=== PATIENT | female | born 1930 | race Caucasian/White ===

== ENCOUNTER 2019-02-06 09:40 | Inpatient (IN) | payer OTHER, MEDICAID ==
[2019-02-06] VITALS (21 sets, daily range): BP systolic 84–123; BP diastolic 32–72
[~2019-02-06] VITALS: Ht 162.6 cm; Wt 95.4 kg
[2019-02-06] MEDS ORDERED: SODIUM CHLORIDE 0.9% 1,000 ML IV ONE ×2 (10:38→14:30)
[2019-02-06 11:05] LABS: Basophils # (auto) 0 uL; Basophils % (auto) 0.2 % (0.0-2.0); Eosinophils # (auto) 0 uL; Hematocrit 39.2 % (36.0-46.0); Hemoglobin 12.4 g/dL (12.2-16.2); Lymphocytes # (auto) 0.5 uL; Mean Corpuscular Hemoglobin 25.2 pg (28.0-32.0); Mean Corpuscular Hgb Conc. 31.6 g/dL (32.0-36.0); Mean Corpuscular Volume 79.8 fL (80.0-100.0); Monocytes # (auto) 1.3 uL; Monocytes % (auto) 5.1 % (0.0-12.0); Neutrophils # (auto) 23.1 uL; Neutrophils % (auto) 92.7 % (37.0-80.0); Nucleated Red Blood Cells % 0.1 %; Platelet Count (auto) 337 10^3/uL (140-450); Red Blood Cells 4.92 10^6/uL (4.0-5.20); Red Cell Distribution Width 19.1 % (11.8-14.3); White Blood Cell 24.9 10^3/uL (4.4-10.8)
[2019-02-06 11:24] LABS: Albumin 3.1 g/dL (3.4-5.0); Calcium 8.7 mg/dL (8.5-10.1); Potassium 4.3 mmol/L (3.5-5.1)
[2019-02-06 11:25] LABS: INR 2.75 (0.9-1.15); Partial Thromboplastin Time 32.4 sec (23.64-32.05)
[2019-02-06 11:29] LABS: BUN/Creatinine Ratio 29.9; Bilirubin, Total 0.7 mg/dL (0.2-1.0); Total Protein 7.8 g/dL (6.4-8.2)
[2019-02-06] MEDS ORDERED: PIPERACILLIN-TAZO 4.5GM 100 ML IV ONE (12:30)
[2019-02-06 14:11] LABS: Lactic Acid w/Reflex 2.2 mmol/L (0.4-2.0)
[2019-02-06 14:19] LABS: Urine Bacteria MANY /hpf (None Seen); Urine Blood 2+ /uL (Negative); Urine Hyaline Cast FEW /lpf (0 - 2); Urine Mucus FEW (None Seen); Urine Specific Gravity 1.019 (1.001-1.035); Urine WBC 47 /hpf (0 - 5)
[2019-02-06 14:28] LABS: Alcohol, Urine < 3.0 mg/dL (0-5); Amphetamine Screen, Urine NEGATIVE (NEGATIVE); Barbiturate Scree,Urine NEGATIVE (NEGATIVE); Benzodiazephine Screen, Urine NEGATIVE (NEGATIVE); Cannabinoid Screen, Urine NEGATIVE (NEGATIVE); Cocaine Screen, Urine NEGATIVE (NEGATIVE); Opiate Scree,Urine POSITIVE (NEGATIVE); Phencyclidine Screen, Urine NEGATIVE (NEGATIVE)
[2019-02-06] MEDS ORDERED: AZITHROMYCIN 500MG/ 250ML 250 ML IV ONE (14:30)
[2019-02-06] MEDS ORDERED: ALBUTEROL SULF 2.5 MG/0.5ML(0.5%) NEB SOLN NEB PRN (14:30)
[2019-02-06] MEDS ORDERED: LACTULOSE 20Gm/30ML SOLN PO PRN (14:30)
[2019-02-06] MEDS ORDERED: LABETALOL HCL 5 MG/ML ML 20ML VIAL IV PRN (14:30)
[2019-02-06] MEDS ORDERED: DEXTROSE (50%) 50ML SYRG IV PRN (14:30)
[2019-02-06] MEDS ORDERED: VANCOMYCIN PER PHARMACY 0 MG IV SCH (14:30)
[2019-02-06] MEDS ORDERED: traMADol HCL 50 MG TAB PO PRN (14:30)
[2019-02-06] MEDS ORDERED: VANCOMYCIN 1GM/250ML 250 ML IV ONE (14:30)
[2019-02-06] MEDS ORDERED: DILTIAZEM 125mg/125ml BAG KIT 125 ML IV SCH (14:30)
[2019-02-06] MEDS ORDERED: DILTIAZEM HCL 25 MG/5 ML VIAL IV ONE (14:30)
[2019-02-06] MEDS ORDERED: ONDANSETRON HCL 4 MG/2 ML VIAL IV PRN (14:30)
[2019-02-06] MEDS ORDERED: NITROGLYCERIN 0.4 MG SL TAB SL PRN (14:30)
[2019-02-06] MEDS ORDERED: MORPHINE SULF INJ 2 MG/ML SYRINGE 1ML IV PRN (14:30)
[2019-02-06 15:23] LABS: CRP High Sensitivity 2.28 mg/dL (< 0.3)
--- NOTE | 2019-02-06 16:50 | NUR ---
REPORT RECEIVED FROM BRIEN THOMAS FROM ER PATIENT TO GO TO ROOM 263.
[2019-02-06] MEDS ORDERED: WARFARIN SODIUM 2 MG TAB PO ONE (17:00)
[2019-02-06] MEDS: InsuLIN REG 1unit/0.01ml Soln (100units/ml) SC SCH ×2 (17:00→22:41)
[2019-02-06] MEDS: ACCU-CHEK COMFORT CURVE STRIP VI SCH ×2 (17:00→22:41)
--- NOTE | 2019-02-06 17:00 | NUR ---
Admit to [facility] admitted to [facility] via gurney on monitoring analyst, and portable 02. Patient transferred to bed, connected to unit monitoring and oxygen, and weighed by bed scale. Patient oriented to Julee Sutton, primary RN, unit, room, bed, and unit policies regarding patient care and visiting hours. All questions and concerns addressed with son Everett verbalized understanding. Bed in low position, call light in reach. Will continue to monitor. Per Nettie RN from ER patients full upper and lower dentures are in belongings bag. Upon checking patient belongings there was noted to be a silver watch, but no dentures were found. Son at bedside and aware,informed charge nurse.
[2019-02-06] MEDS: ALBUTEROL SULF 2.5 MG/0.5ML(0.5%) NEB SOLN NEB SCH (18:00)
[2019-02-06] MEDS: IPRATROPIUM BROM 0.5 MG/2.5ML INH SOL NEB SCH (18:00)
--- NOTE | 2019-02-06 18:04 | NUR ---
Respiratory note: WITHHELD SCHED MED NEB TX DUE TO PT'S INCREASED HR. PT IS CURRENTLY ON 3 L/M NC: HR 136, RR 26, SPO2 96%. PT SHOWS NO S/S OF SOB OR RESPIRATORY DISTRESS. FAMILY AT BEDSIDE. RN AWARE OF TX BEING WITHHELD. WILL CONTINUE TO MONITOR.
[2019-02-06] MEDS: VANCOMYCIN 1GM/250ML 250 ML IV SCH (18:32)
--- NOTE | 2019-02-06 19:05 | NUR ---
NGT PLACEMENT PLACED 14F NGT PLACED TO RIGHT NARE. PATIENT TOLERATED WELL. AUSCULTATION VERIFIED PLACEMENT.
--- NOTE | 2019-02-06 19:30 | NUR ---
PAGED DR BOX AND LEFT MESSAGE WITH PATIENTS MOST RECENT TROPONIN LEVEL WELL INFORMING OF PATIENTS INCREASED HR 130'S AFIB RVR. AWAITING CALL BACK. ENDORSED TO SHEEP AND WHEAT FARMER NURSE.
--- NOTE | 2019-02-06 19:40 | NUR ---
Dr Nunez called back, Pt's condition notified, Enrique KRAMER ordered to give Metoprolol 50mg 1tab NG PO now, Start Cordarone 400mg NG BID. Enrique KRAMER ordered to monitor HR if still high can give another Metoprolol 25mg NG per schedule. Continue care.
[2019-02-06] MEDS ORDERED: METOPROLOL TARTRATE 50 MG TAB NG ONE (20:00)
--- NOTE | 2019-02-06 20:30 | NUR ---
Family at bedside, Pt's son; Everett at bedside for a visit. Updated about Pt's condition and treatment given. Family verbalized understanding.
[2019-02-06] MEDS: PIPERACILLIN-TAZOB 3.375GM 100 ML IV SCH ×2 (20:32→23:58)
[2019-02-06] MEDS: AMIODARONE HCL 200 MG TAB NG SCH (20:33)
--- NOTE | 2019-02-06 21:30 | NUR ---
Downgraded bleaching supervisor did bed management, ordered to ask Hospitalist if able to downgrade Pt from ICU status to [facility] status. Pt admitted with A-Fib RVR, received Diltiazem IV drip in ER. The medication stopped prior to transferred to [id number]. At the moment, Pt's condition stable with no cardiac IV drip. Paged Dr. Alan, hospitalist. Dayanna KRAMER called back, ordered to downgraded to [facility].
--- NOTE | 2019-02-06 21:50 | NUR ---
Pt's belonging/ denture tax map technician brought in one denture that he found in the Pt's room in ER. From the report, Pt has upper and lower dentures. tax map technician confirmed that he only found this one, and he will continue look for the dentures through out the shift. The denture was full either for upper or lower teeth, dirty with black stains, will clean up and ask the Pt and family in the morning.
[2019-02-06] MEDS ORDERED: METOPROLOL TARTRATE 25 MG TAB PO SCH (22:00)
--- NOTE | 2019-02-06 22:00 | NUR ---
Condition update/ HR HR 110's -120's , SBP 80's -90's, other v/s and condition stable, will hold the schedule metoprolol for now and continue monitoring.
[2019-02-06] MEDS: ATORVASTATIN 20 MG TAB PO SCH (22:40)
[2019-02-07] VITALS (12 sets, daily range): BP systolic 82–114; BP diastolic 42–73
--- NOTE | 2019-02-07 00:23 | NUR ---
Respiratory note: WITHHELD SCHED MED NEB TX DUE TO PT'S INCREASED HR. PT IS CURRENTLY ON 3 L/M NC: HR 132, RR 26, SPO2 98%. PT SHOWS NO S/S OF SOB OR RESPIRATORY DISTRESS. FAMILY AT BEDSIDE. WILLIAM WILSON AWARE OF TX BEING WITHHELD. WILL CONTINUE TO MONITOR.
--- NOTE | 2019-02-07 02:00 | NUR ---
Condition update/ HR Pt resting in bed with eyes closed. EKG showed A-fib rate 110's - 120's, BP increased to 100's/ 60's mmHg, will administer Metoprolol tab that was held from 10pm. Continue to monitor.
[2019-02-07] MEDS: METOPROLOL TARTRATE 25 MG TAB PO SCH ×4 (02:04→22:22)
--- NOTE | 2019-02-07 03:45 | NUR ---
Patient bathe/linen change Patient given complete bath with basin and no-rinse solution. Stapleton's catheter care/ perineum care done, z-guard applied. Perirectal care and buttock cleaned, z-guard applied. Skin integrity assessed for any changes, no new changes. Linens changed. Pt tolerated fairly, moaning when moving legs. Mouth care done with sponge/ mouth wash and using Yankauer. Patient repositioned for comfort and prevent pressure ulcer.
[2019-02-07 05:47] LABS: Basophils # (auto) 0 uL; Basophils % (auto) 0.2 % (0.0-2.0); Eosinophils # (auto) 0 uL; Hematocrit 34.4 % (36.0-46.0); Lymphocytes # (auto) 1.3 uL; Lymphocytes % (auto) 11.8 % (10.0-50.0); Mean Corpuscular Hemoglobin 25.7 pg (28.0-32.0); Mean Corpuscular Hgb Conc. 32.1 g/dL (32.0-36.0); Mean Corpuscular Volume 80.2 fL (80.0-100.0); Monocytes % (auto) 9.1 % (0.0-12.0); Neutrophils # (auto) 8.8 uL; Neutrophils % (auto) 78.9 % (37.0-80.0); Nucleated Red Blood Cells % 0.1 %; Platelet Count (auto) 354 10^3/uL (140-450); Red Blood Cells 4.28 10^6/uL (4.0-5.20); Red Cell Distribution Width 18.6 % (11.8-14.3); White Blood Cell 11.1 10^3/uL (4.4-10.8)
[2019-02-07 05:57] LABS: Calcium 7.7 mg/dL (8.5-10.1)
[2019-02-07 05:58] LABS: INR 4.43 (0.9-1.15)
[2019-02-07 06:02] LABS: Albumin 2.4 g/dL (3.4-5.0); Bilirubin, Total 0.6 mg/dL (0.2-1.0); Total Protein 6.1 g/dL (6.4-8.2)
[2019-02-07] MEDS: PIPERACILLIN-TAZOB 3.375GM 100 ML IV SCH ×4 (06:11→23:39)
[2019-02-07] MEDS: ALBUTEROL SULF 2.5 MG/0.5ML(0.5%) NEB SOLN NEB SCH ×4 (06:24→19:23)
[2019-02-07] MEDS: IPRATROPIUM BROM 0.5 MG/2.5ML INH SOL NEB SCH ×4 (06:24→19:23)
[2019-02-07] MEDS: InsuLIN REG 1unit/0.01ml Soln (100units/ml) SC SCH ×4 (07:00→22:22)
[2019-02-07] MEDS: ACCU-CHEK COMFORT CURVE STRIP VI SCH ×4 (07:18→22:22)
--- NOTE | 2019-02-07 07:30 | NUR ---
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
--- NOTE | 2019-02-07 08:30 | NUR ---
DR RIVAS IN TO SEE THE PATIENT
--- NOTE | 2019-02-07 09:00 | NUR ---
EEG BEING DONE
--- NOTE | 2019-02-07 09:00 | NUR ---
CINDY MILLAN IN TO SEE THE PATIENT
[2019-02-07 10:00] LABS: Folate (Folic Acid) 19.27 ng/mL (5.38-24)
[2019-02-07] MEDS ORDERED: NITROGLYCERIN 0.2MG/HR TOPICAL PATCH TD SCH (10:00)
[2019-02-07] MEDS ORDERED: CLOPIDOGREL BISULFATE 75 MG TAB PO SCH (10:00)
[2019-02-07] MEDS ORDERED: ASPirin 81 mg TAB PO SCH (10:00)
--- NOTE | 2019-02-07 10:30 | NUR ---
EEG COMPLETED AT BEDSIDE. RN CONNIE AWARE.
[2019-02-07] MEDS: AZITHROMYCIN 500MG/ 250ML 250 ML IV SCH (10:39)
[2019-02-07] MEDS: PANTOPRAZOLE 40 MG TAB PO SCH (10:40)
[2019-02-07] MEDS: AMIODARONE HCL 200 MG TAB NG SCH ×2 (10:40→22:21)
--- NOTE | 2019-02-07 10:45 | NUR ---
EXPLAIN MEDICATIONS TO THE PATIENT REGARDING THE DOSAGE, USAGE AND THE SIDE EFFECTS, STATED SHE THINKS SHE UNDERSTANDS AND MEDS GIVEN ORDERED
--- NOTE | 2019-02-07 10:55 | NUR ---
ECHO BEING DONE
--- NOTE | 2019-02-07 11:07 | NUR ---
Nutrition Assessment/consult Notes Please see attached link for complete assessment Est. Needs ABW (74 kg): 6992-4558 kcal (20-23 kcal/kgBW), 74-81gms pro (1.0-1.1 gms/kgBW). Will continue to monitor pertinent labs and reassess nutrient need prn Addendum: 02/07/19 at [address] Amended: Links added.
[2019-02-07] MEDS ORDERED: OPTISON 3ml Vial for INJ IV ONE (11:24)
--- NOTE | 2019-02-07 11:30 | NUR ---
WOUND CARE NOTE: IN TO SEE PATIENT AT THIS TIME PER WOUND CARE CONSULT REQUEST. PATIENT ADMITTED TO [facility] WITH DIAGNOSIS OF ALOC, SEPSIS, PNA, UTI, AFIB. CURRENT KRISTY SCORE IS 11. PATIENT HAD WOUND PHOTOS TAKEN UPON ADMIT BY BEDSIDE NURSE FOR REFERENCE. PATIENT NOTED TO HAVE INTERTRIGINOUS RASH TO MULTIPLE SKIN FOLD AREAS OF BILATERAL BREAST, ABD, GROIN, INTRAGLUTEAL FOLD, PERINEUM. 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 Chelaile ELITE AIR MATTRESS ORDERED. PATIENT TO BE PLACED, PENDING DELIVERY BY [facility]. PATIENT RECOMMENDATIONS: FREQUENT TURN SCHEDULE Q 2 HOURS, PRN CONDITION PERMITS, WITH PRESSURE REDISTRIBUTION USING PILLOWS/WEDGES, SPECIALTY AIR MATTRESS, BID/PRN APPLICATION WITH ANTIFUNGAL CLEAR BARRIER FILM TO SKIN FOLD AREAS, AND PERINEUM/INTRAGLUTEAL FOLD SACRUM, Q 3 DAYS/PRN DRESSING CHANGES TO OPEN WOUNDS ON LLE AND BILATERAL UPPER EXTREMITIES, DIETARY CONSULT, CONTINUED MONITORING BY WOUND CARE TEAM. Addendum: 02/07/19 at 1827 by Nieves Morales RN Amended: Links added.
--- NOTE | 2019-02-07 11:30 | NUR ---
CAREGIVERS IN TO VISIT WITH THE PATIENT
--- NOTE | 2019-02-07 12:00 | NUR ---
OPENS EYES WHEN YOU CALL HER NAME,
[2019-02-07 12:30] LABS: INR 6.82 (0.9-1.15)
--- NOTE | 2019-02-07 12:54 | NUR ---
CAROTID BEING DONE
--- NOTE | 2019-02-07 13:15 | NUR ---
CURB SETTER HELPER IN TO SEE THE PATIENT
--- NOTE | 2019-02-07 14:05 | NUR ---
SITTING UP IN THE BED EYES CLOSED,
--- NOTE | 2019-02-07 14:45 | NUR ---
PAGEBillie STEVENSON FOR THE SON TO TALK TOO Addendum: 02/07/19 at 1712 by Shannon Bryan RN CHANGE TIME TO [id number]
--- NOTE | 2019-02-07 15:00 | NUR ---
SON LEFT AND WENT HOME AND STATED HE WILL BE BACK TOMORROW
--- NOTE | 2019-02-07 15:47 | NUR ---
Assessment Pt is an 88 year old female who was alert and oriented x3 but has a hard time forming sentences and communicating due to stroke history. Pt was brought to the hospital due to falling at home and being unconscious on the floor. Pts caregiver found her. Pts caregivers name is Bryant and she was bedside with pt. Pt gave SW permission to talk with Bryant the caregiver. Bryant's phone number is [phone]. Pts point of contact is her son, Everett, at [phone]. Pt currently lives alone with caregiver services 4 hours in the morning and 3 hours in the evening with [facility]. Prior to admit, pt able to ambulate with use of walker or w/c for long distance. Pt's caregivers cook, clean, and assist with ADL's. Pt has HH through [place] for wound care and vitals. Pt stated that she doesn't want to go to a SNF but that is what the is saying might be best for her. Pt has a history of refusing SNF placement. Pt's primary is Dr Cruz. Pt has possible POA with her son Everett. Pt could benefit with a SNF placement at this time due to not ambulating well and being a high-fall risk. Addendum: 02/07/19 at 1602 by ELSA SANTANA Amended: Links added.
--- NOTE | 2019-02-07 16:00 | NUR ---
SITTING UP IN BED YES CLOSED, APPEARS TO BE SLEEPING
--- NOTE | 2019-02-07 17:00 | NUR ---
SWALLOW EVALUATED. PATIENT HAS UPPER DENTURES ONLY. ALOC BUT ABLE TO FOLLOW ONE STEP COMMANDS. PATIENT ABLE TO TOLERATE PUREE DIET TEXTURE WITH THIN LIQUIDS WITH NO OVERT SIGNS OR SYMPTOMS OF ASPIRATION. NURSING NOTIFIED.
[2019-02-07] MEDS: VANCOMYCIN 1GM/250ML 250 ML IV SCH (17:17)
--- NOTE | 2019-02-07 17:25 | NUR ---
PATIENT STATES SHE LIKED EATING THE APPLESAUCE
--- NOTE | 2019-02-07 18:25 | NUR ---
PATIENT BEING FEED HER DINNER AND TOLERATED AT THIS TIME, O2 AT 3L BY N/C WITH O2 SAT 98%, NELSON TO GRAVITY, SLING TO THE RT ARM, LAC 20G SALINE LOCK FLUSHED AND PATENT, RT HAND 22G WITH ANTIBIOTICS INFUSING BY THE IV PUMP, ON SPECIALTY BED, NO COMPLAINTS OF PAIN, NGT TO THE THE RT NARES, IN PLACE, WILL CONTINUE TO MONITOR AND GIVE REPORT TO THE NEXT SHIFT
--- NOTE | 2019-02-07 19:30 | NUR ---
OPENING SHIFT RECEIVED REPORT FROM DAY SHIFT RN. ASSUMED CARE OF PATIENT. PATIENT IN BED WATCHING RESTING WITH NO SIGNS OR SYMPTOMS OF SOB, PAIN OR DISTRESS. CURRENTLY ON 3L 02 NASAL CANNULA, 02 SAT - 97%. RIGHT HAND AND LEFT ANTECUBITAL IV - CLEAN/DRY/INTACT. NELSON HUNG TO GRAVITY ON BED RAIL. NGT TO THE RIGHT NARE AT 55- PLACEMENT VERIFIED VIA AUSCULTATION, MINIMAL RESIDUAL. UPDATED PATIENT ON PLAN OF CARE. REPOSITIONED FOR COMFORT. BED IN LOWEST POSITION, PADDED SIDE RAILS UP X2, CALL LIGHT WITHIN REACH. WILL CONTINUE TO MONITOR.
[2019-02-07] MEDS: ATORVASTATIN 20 MG TAB PO SCH (22:21)
[2019-02-08] VITALS (7 sets, daily range): BP systolic 102–124; BP diastolic 51–70
[2019-02-08] MEDS: IPRATROPIUM BROM 0.5 MG/2.5ML INH SOL NEB SCH ×4 (00:13→19:11)
[2019-02-08] MEDS: ALBUTEROL SULF 2.5 MG/0.5ML(0.5%) NEB SOLN NEB SCH ×4 (00:14→19:12)
[2019-02-08] MEDS ORDERED: WARF2.5T39 PO (02:01)
[2019-02-08] MEDS ORDERED: METF-879 PO (02:01)
[2019-02-08] MEDS ORDERED: FAMO-12 PO (02:01)
[2019-02-08] MEDS ORDERED: LEVO88TA4 PO (02:01)
[2019-02-08] MEDS ORDERED: HYDR-4833 PO (02:01)
[2019-02-08] MEDS ORDERED: DILT60TA27 PO (02:01)
[2019-02-08] MEDS ORDERED: ALEN1TAB32 PO (02:01)
[2019-02-08] MEDS ORDERED: FURO40TA4 PO (02:01)
--- NOTE | 2019-02-08 05:04 | NUR ---
MORNING CARE PERFORMED MORNING CARE WITH WASH CLOTHS. PARTIAL LINEN CHANGE AND GOWN CHANGED AT THIS TIME. REPOSITIONED FOR COMFORT. SKIN REASSESSED AT THIS TIME. BED IN LOWEST POSITION, SIDE RAILS UP X2, CALL LIGHT WITHIN REACH. WILL CONTINUE TO MONITOR.
[2019-02-08 05:59] LABS: Basophils # (auto) 0 uL; Basophils % (auto) 0.2 % (0.0-2.0); Eosinophils # (auto) 0 uL; Hematocrit 31.8 % (36.0-46.0); Hemoglobin 10.3 g/dL (12.2-16.2); Lymphocytes # (auto) 1.3 uL; Lymphocytes % (auto) 9.5 % (10.0-50.0); Mean Corpuscular Hemoglobin 25.4 pg (28.0-32.0); Mean Corpuscular Hgb Conc. 32.3 g/dL (32.0-36.0); Mean Corpuscular Volume 78.4 fL (80.0-100.0); Monocytes # (auto) 1.2 uL; Monocytes % (auto) 8.8 % (0.0-12.0); Neutrophils # (auto) 11.4 uL; Neutrophils % (auto) 81.5 % (37.0-80.0); Nucleated Red Blood Cells % 0.1 %; Platelet Count (auto) 263 10^3/uL (140-450); Red Blood Cells 4.05 10^6/uL (4.0-5.20); Red Cell Distribution Width 18.7 % (11.8-14.3); White Blood Cell 13.9 10^3/uL (4.4-10.8)
[2019-02-08 06:00] LABS: Potassium 3.7 mmol/L (3.5-5.1)
[2019-02-08 06:03] LABS: Partial Thromboplastin Time 44.7 sec (23.64-32.05)
[2019-02-08 06:09] LABS: Albumin 2.4 g/dL (3.4-5.0); BUN/Creatinine Ratio 29.4; Bilirubin, Total 0.5 mg/dL (0.2-1.0); Calcium 7.5 mg/dL (8.5-10.1); Magnesium 2.2 mg/dL (1.6-2.6)
[2019-02-08 06:18] LABS: INR 7.2 (0.9-1.15)
[2019-02-08] MEDS: PIPERACILLIN-TAZOB 3.375GM 100 ML IV SCH ×4 (06:19→23:32)
[2019-02-08] MEDS: ACCU-CHEK COMFORT CURVE STRIP VI SCH ×4 (06:23→21:41)
[2019-02-08] MEDS: InsuLIN REG 1unit/0.01ml Soln (100units/ml) SC SCH ×4 (06:23→21:41)
--- NOTE | 2019-02-08 07:20 | NUR ---
END OF SHIFT REPORT GIVEN TO DAY SHIFT RN, CARE ENDORSED.
--- NOTE | 2019-02-08 07:30 | NUR ---
RECEIVED PATIENT SITTING UP IN THE BED, A/O TIMES 2, ON A SPECIALTY MATTRESS, SLING TO THE RT ARM,, O2 AT 2L BY N/C, SALINE LOCK TO THE RT HAND 22G AND THE LAC 20 BOTH FLUSHED AND PATENT, NELSON TO GRAVITY, NO COMPLAINTS AT THIS TIME
--- NOTE | 2019-02-08 08:20 | NUR ---
PATIENT WAS FEED HER BREAKFAST
--- NOTE | 2019-02-08 08:25 | NUR ---
DICK RIVAS IN TO SEE THE PATIENT ORDERED CT OF THE HEAD
[2019-02-08] MEDS ORDERED: CYANOCOBALAMIN (B-12) 1000 MCG/1 ML VIAL IM ONE (08:45)
--- NOTE | 2019-02-08 08:45 | NUR ---
TAKEN TO CT BY THE BED
[2019-02-08] MEDS ORDERED: IOHEXOL 350 MG/ML 100ML IJ ONE (08:48)
--- NOTE | 2019-02-08 09:05 | NUR ---
BACK FROM CT TOLERATED PROCEDURE PER TRANSPORT NURSE
--- NOTE | 2019-02-08 09:20 | NUR ---
DR STEVENSON IN TO SEE THE PATIENT AND SPOKE TO THE SON REGARDING THE POC AND PATIENT WAS MADE A DNR/DNI, ALSO EXPRESS TO HIM THAT SHE WAS GOING TO TRANSFER HER TO [facility] AND THE SON AGREED
--- NOTE | 2019-02-08 09:20 | NUR ---
SON IN TO SEE THE PATIENT
--- NOTE | 2019-02-08 10:35 | NUR ---
GOTTEN UP TO THE BSC BY AND HAD A LARGE BM,
--- NOTE | 2019-02-08 10:45 | NUR ---
PLACED IN THE CHAIR BY PT MAX ASSIST
[2019-02-08] MEDS ORDERED: FUROSEMIDE 40 MG/4 ML VIAL IV ONE (11:15)
[2019-02-08] MEDS ORDERED: POTASSIUM CHL 20 Meq TABLET PO ONE (11:15)
[2019-02-08] MEDS: AZITHROMYCIN 500MG/ 250ML 250 ML IV SCH (11:21)
[2019-02-08] MEDS: AMIODARONE HCL 200 MG TAB NG SCH ×2 (11:25→22:54)
--- NOTE | 2019-02-08 11:25 | NUR ---
DISCUSSED MEDICATIONS WITH THE SON AND THE PATIENT REGARDING THE DOSAGE, USAGE,AND THE SIDE EFFECTS, VERBALIZED THAT UNDERSTOOD AND MEDS GIVEN ORDERED
[2019-02-08] MEDS: PANTOPRAZOLE 40 MG TAB PO SCH (11:26)
[2019-02-08] MEDS: METOPROLOL TARTRATE 25 MG TAB PO SCH ×2 (11:26→22:00)
--- NOTE | 2019-02-08 11:45 | NUR ---
NGT WAS REMOVED
--- NOTE | 2019-02-08 12:20 | NUR ---
GOTTEN BACK INTO THE BED AND X-RAYS OF THE HIP AND LEG WERE TAKEN
--- NOTE | 2019-02-08 13:10 | NUR ---
ULTRASOUND OF THE LEGS BEING DONE
--- NOTE | 2019-02-08 14:03 | NUR ---
TRANSFER todays progress notes and transfer order faxed to [place] [facility] at this time.
--- NOTE | 2019-02-08 15:00 | NUR ---
SITTING UP IN THE BED SON LEFT AND WENT HOME
--- NOTE | 2019-02-08 16:00 | NUR ---
SITTING UP IN BED WITH YES CLOSED APPEARS TO BE SLEEPING
--- NOTE | 2019-02-08 16:31 | NUR ---
Transfer: I called [facility] and spoke to Melisa rosst and she stated CM is reviewing notes/order and will call RN if pt will be transferred tonoc.
[2019-02-08] MEDS: VANCOMYCIN 1GM/250ML 250 ML IV SCH (16:51)
--- NOTE | 2019-02-08 17:05 | NUR ---
SPOKE WITH BRIANA FROM [facility] AND STATED THE PATIENT MAY NOT BE GOING TO [facility] TODAY, WANTED THE NOTES FROM DR STEVENSON FAXED TO HER
--- NOTE | 2019-02-08 17:55 | NUR ---
SITTING UP IN BED WITH EYES CLOSED
--- NOTE | 2019-02-08 18:30 | NUR ---
PATIENT SITTING UP IN THE BED BEING FEED HER DINNER, O2 AT 2L BY N/C, NELSON TO GRAVITY, A/O TIMES 2, SALINE LOCK 20G TO THE LAC INTACT, AND 22G TO THE RT HAND WITH ANTIBIOTICS INFUSING BY THE IV PUMP, SLING TO THE RT ARM, NO FRACTURE TO THE RT HIP OR KNEE PER THE X-RAY, NOT COMPLAINING OF ANY PAIN STATES IT ONLY HURTS WHEN WE MOVE HER RT ARM OR LEG, WILL CONTINUE TO MONITOR AND GIVE REPORT TO THE NEXT SHIFT
--- NOTE | 2019-02-08 19:30 | NUR ---
OPENING SHIFT RECEIVED REPORT FROM DAY SHIFT RN. ASSUMED CARE OF PATIENT. PATIENT IN BED SLEEPING WITH NO SIGNS OR SYMPTOMS OF SOB, PAIN OR DISTRESS. CURRENTLY ON 3L NASAL CANNULA, 02 SAT - 98%. LEFT ANTECUBITAL AND RIGHT HAND IV - CLEAN/DRY/INTACT. NELSON HUNG TO GRAVITY ON BED RAIL. REPOSITIONED FOR COMFORT. UPDATED PATIENT ON PLAN OF CARE. BED IN LOWEST POSITION, PADDED SIDE RAILS UP X2, CALL LIGHT WITHIN REACH. WILL CONTINUE TO MONITOR.
[2019-02-08] MEDS: ATORVASTATIN 20 MG TAB PO SCH (22:00)
[2019-02-09] VITALS (8 sets, daily range): BP systolic 89–113; BP diastolic 51–68
[2019-02-09] MEDS: ALBUTEROL SULF 2.5 MG/0.5ML(0.5%) NEB SOLN NEB SCH ×4 (00:10→18:41)
[2019-02-09] MEDS: IPRATROPIUM BROM 0.5 MG/2.5ML INH SOL NEB SCH ×4 (00:10→18:41)
[2019-02-09] MEDS: PIPERACILLIN-TAZOB 3.375GM 100 ML IV SCH ×2 (05:57→13:17)
[2019-02-09 06:05] LABS: Basophils # (auto) 0 uL; Eosinophils # (auto) 0.2 uL; Eosinophils % (auto) 1.6 % (0.0-7.0); Hemoglobin 9.5 g/dL (12.2-16.2); Mean Corpuscular Hemoglobin 25.5 pg (28.0-32.0); White Blood Cell 13.4 10^3/uL (4.4-10.8)
[2019-02-09 06:10] LABS: INR 2.33 (0.9-1.15)
[2019-02-09 06:11] LABS: Basophils % (auto) 0.2 % (0.0-2.0); Hematocrit 29.1 % (36.0-46.0); Lymphocytes # (auto) 1.6 uL; Lymphocytes % (auto) 11.8 % (10.0-50.0); Mean Corpuscular Hgb Conc. 32.7 g/dL (32.0-36.0); Monocytes % (auto) 7.6 % (0.0-12.0); Neutrophils # (auto) 10.5 uL; Neutrophils % (auto) 78.8 % (37.0-80.0); Platelet Count (auto) 243 10^3/uL (140-450); Red Blood Cells 3.73 10^6/uL (4.0-5.20); Red Cell Distribution Width 18.5 % (11.8-14.3)
[2019-02-09 06:19] LABS: Albumin 2.2 g/dL (3.4-5.0); Calcium 7.4 mg/dL (8.5-10.1); Potassium 3.8 mmol/L (3.5-5.1)
[2019-02-09 06:23] LABS: BUN/Creatinine Ratio 25.6
[2019-02-09 06:25] LABS: Bilirubin, Total 0.8 mg/dL (0.2-1.0)
[2019-02-09] MEDS: InsuLIN REG 1unit/0.01ml Soln (100units/ml) SC SCH ×4 (06:36→22:32)
[2019-02-09] MEDS: ACCU-CHEK COMFORT CURVE STRIP VI SCH ×4 (06:36→22:00)
[2019-02-09] MEDS: LEVOTHYROXINE SODIUM 88 MCG TAB PO SCH (07:49)
--- NOTE | 2019-02-09 08:30 | NUR ---
Opening Shift Note Assumed care of patient @ 0745, awake and oriented x2, re-oriented to time and situation, patient forgetful with periods of confusion. No S/S of distress/SOB or pain. Patient saturation 96% at 2 LPM oxygen via nasal cannula. Unable to refused back and sacrum, patient refused to be turned at this time. Educated on the benefits of turning and risks of not being turned. Patient states "I don't have any problems on my back. I know it." Bed locked on low position, side rails up x2, bed alarms on at all times. Call webb within reach. Instructed on POC and to call for assist PRN, will continue to monitor for changes Q1hr and PRN.
--- NOTE | 2019-02-09 09:40 | NUR ---
Patient's son Everett at bedside, updated on patient's status and POC. Son verbalized understanding. All questions and concerns addressed.
--- NOTE | 2019-02-09 10:45 | NUR ---
Dr Headley at bedside, updated on patient's status. Patient seen and examined. Will carry out new orders.
[2019-02-09] MEDS: AZITHROMYCIN 500MG/ 250ML 250 ML IV SCH (11:07)
[2019-02-09] MEDS: PANTOPRAZOLE 40 MG TAB PO SCH (11:10)
[2019-02-09] MEDS: FUROSEMIDE 40 MG/4 ML VIAL IV SCH (11:10)
[2019-02-09] MEDS: POTASSIUM CHL 20 Meq TABLET PO SCH (11:11)
[2019-02-09] MEDS: METOPROLOL TARTRATE 25 MG TAB PO SCH ×2 (11:11→22:31)
[2019-02-09] MEDS: CYANOCOBALAMIN 500 MCG TAB PO SCH (11:11)
[2019-02-09] MEDS: AMIODARONE HCL 200 MG TAB NG SCH ×2 (11:12→22:31)
--- NOTE | 2019-02-09 13:00 | NUR ---
Patient had small amount of soft brown stool, perianal care rendered. Skin integrity assessed for any changes. Noted blanchable redness on sacrum. Partial linen change done. Patient repositioned for comfort.
[2019-02-09] MEDS: ACETAMINOPHEN 500 MG TAB PO PRN ×2 (13:16→18:22)
--- NOTE | 2019-02-09 15:03 | NUR ---
Nutrition Follow-up Notes Wt.: 94.0 kg as of yesterday. Pt's on oxygen via nasal cannula, asleep, no signs of distress noted earlier, had swallow eval by ST (02/07/19), currently on Pureed diet with fair PO intake aeb 70% ave. consumed meals (x3) since yesterday. Est. Needs ABW (74 kg): 4126-3918 kcal (20-23 kcal/kgBW), 74-81gms pro (1.0-1.1 gms/kgBW). Will continue to monitor pertinent labs and reassess nutrient need prn Labs: Gluc 217 H, BUN 23 H, Ca 7.4 L, AST 88 H, ALT 73 H, Tpro 6.0 L, Alb 2.2 L; Hba1c 7.5 H Skin: Chan scale 13, mod risk, pt's left lateral leg stasis ulcer per manager social work. GI: Pt had 1 BM yesterday per manager social work. PES: Altered nutrition related lab values r/t current/chronic medical condition aeb elev BUN hypocalcemia, mod hypoalb, elev A1C Obesity r/t excessive energy less than body requirement aeb 172% IBW, BMI 35.6 kg/m2 and increased body adiposity Will continue to monitor PO intake, skin status, pertinent labs and weight trend. F/u in 3 to 5 days. Rec.: 1.) Consider Pureed Consistent Standard Carb: 60 gms/meal, Cardiac: 2 gms Na, Low Chol, Low Fat diet. 2.) If Albumin continues trending down, consider Prostat 1 pkt BID. 3.) Consider daily MVI with minerals and Asc acid 500 mgs BID. 4.) Continue close supervision and feeding assistance prn during meals. 5.) Refer pt to CDE/RD for further nutrition education and weight monitoring upon discharge. 6.) Continue current plan of care.
--- NOTE | 2019-02-09 16:35 | NUR ---
Dr Nunez at bedside, updated on patient's status. Patient seen and examined. Plan to do MITCH tomorrow. Will carry out new orders.
[2019-02-09] MEDS ORDERED: WARFARIN SODIUM 1 MG TAB PO ONE (17:00)
--- NOTE | 2019-02-09 19:31 | NUR ---
OPENING SHIFT RECEIVED REPORT FROM DAY SHIFT RN. ASSUMED CARE OF PATIENT. PATIENT IN BED SLEEPING WITH NO SIGNS OR SYMPTOMS OF SOB, PAIN OR DISTRESS. CURRENTLY ON 2L NASAL CANNULA, 02 SAT - 97%. RIGHT HAND AND LEFT FOREARM IV - CLEAN/DRY/INTACT. NELSON HUNG TO GRAVITY ON BED RAIL. REPOSITIONED FOR COMFORT. BED IN LOWEST POSITION, PADDED SIDE RAILS UP X2, CALL LIGHT WITHIN REACH. WILL CONTINUE TO MONITOR.
[2019-02-09] MEDS ORDERED: cefTRIAXone 1GM/50ML D5W 50 ML IV ONE (20:00)
[2019-02-09] MEDS: ATORVASTATIN 20 MG TAB PO SCH (22:31)
[2019-02-10] MEDS: IPRATROPIUM BROM 0.5 MG/2.5ML INH SOL NEB SCH ×4 (00:35→19:13)
[2019-02-10] MEDS: ALBUTEROL SULF 2.5 MG/0.5ML(0.5%) NEB SOLN NEB SCH ×4 (00:35→19:13)
--- NOTE | 2019-02-10 03:30 | NUR ---
MORNING CARE PERFORMED MORNING CARE WITH CHG WIPES AND WASH CLOTHS TO THE FACE. PARTIAL LINEN CHANGE AND GOWN CHANGED. REPOSITIONED FOR COMFORT. SKIN REASSESSED AT THIS TIME. WILL CONTINUE TO MONITOR.
[2019-02-10 04:00] VITALS: BP 88/60
[2019-02-10 06:13] LABS: Basophils # (auto) 0 uL; Basophils % (auto) 0.2 % (0.0-2.0); Eosinophils # (auto) 0.4 uL; Eosinophils % (auto) 3.5 % (0.0-7.0); Hematocrit 28.7 % (36.0-46.0); Hemoglobin 9.8 g/dL (12.2-16.2); Lymphocytes # (auto) 1.7 uL; Lymphocytes % (auto) 14.1 % (10.0-50.0); Mean Corpuscular Hemoglobin 27.1 pg (28.0-32.0); Mean Corpuscular Hgb Conc. 34.3 g/dL (32.0-36.0); Mean Corpuscular Volume 79.1 fL (80.0-100.0); Monocytes # (auto) 0.9 uL; Monocytes % (auto) 7.6 % (0.0-12.0); Neutrophils % (auto) 74.6 % (37.0-80.0); Nucleated Red Blood Cells % 0.2 %; Platelet Count (auto) 252 10^3/uL (140-450); Red Blood Cells 3.63 10^6/uL (4.0-5.20); Red Cell Distribution Width 18.1 % (11.8-14.3)
--- NOTE | 2019-02-10 06:38 | NUR ---
SPOKE WITH SON SPOKE WITH MONTY (SON) IN REGARDS TO OBTAINING TELEPHONE CONSENT FOR MITCH PROCEDURE TODAY. SON EXPRESSED THAT HE WANTED TO SPEAK TO THE DOCTOR FOR FURTHER INFORMATION REGARDING THE PROCEDURE. WILL ENDORSE TO DAY SHIFT RN.
[2019-02-10 06:40] LABS: INR 1.81 (0.9-1.15)
[2019-02-10 06:46] LABS: Potassium 3.7 mmol/L (3.5-5.1)
[2019-02-10] MEDS: LEVOTHYROXINE SODIUM 88 MCG TAB PO SCH (06:50)
[2019-02-10] MEDS: InsuLIN REG 1unit/0.01ml Soln (100units/ml) SC SCH ×4 (06:50→22:05)
[2019-02-10] MEDS: ACCU-CHEK COMFORT CURVE STRIP VI SCH ×4 (06:50→22:04)
[2019-02-10 06:53] LABS: Albumin 2.2 g/dL (3.4-5.0); BUN/Creatinine Ratio 28.9; Bilirubin, Total 0.7 mg/dL (0.2-1.0); Calcium 7.5 mg/dL (8.5-10.1); Magnesium 2.1 mg/dL (1.6-2.6); Total Protein 6.1 g/dL (6.4-8.2)
[2019-02-10] MEDS ORDERED: LEVOTHYROXINE SODIUM 88 MCG TAB PO SCH (07:00)
--- NOTE | 2019-02-10 07:27 | NUR ---
END OF SHIFT REPORT GIVEN TO DAY SHIFT RN. CARE ENDORSED.
[2019-02-10 07:40] VITALS: BP 104/62
--- NOTE | 2019-02-10 08:00 | NUR ---
Opening Shift Note Assumed care of patient, awake and oriented x2, re-oriented to time and situation. No S/S of distress/SOB or pain. Patient saturation 95% at 2 LPM oxygen via nasal cannula. RT hand noted to be swollen, elevated with pillow. Bed locked on low position, side rails up x2, bed alarms on at all times, call webb within reach. Instructed on POC and to call for assist PRN, will continue to monitor for changes Q1hr and PRN.
--- NOTE | 2019-02-10 08:10 | NUR ---
Paged Dr Nunez regarding patient's procedure, will inform patient's son Everett wanted to speak to him. Awaiting call back.
[2019-02-10] MEDS ORDERED: cefTRIAXone 1GM/50ML D5W 50 ML IV SCH (09:00)
--- NOTE | 2019-02-10 09:35 | NUR ---
Patient had moderate amount of soft brown stool, perineal care rendered. Skin integrity assessed for any changes. Linens and patient's gown changed. Patient repositioned for comfort.
--- NOTE | 2019-02-10 10:30 | NUR ---
Dr Headley at bedside, updated on patient's status. Patient seen and examined. Will carry out new orders.
--- NOTE | 2019-02-10 10:30 | NUR ---
Patient's RT hand swelling subsided. Will continue to elevate with pillow.
--- NOTE | 2019-02-10 10:37 | NUR ---
Transferl: Progression of notes on transfer of pt have been placed in [facility] documentation. I have called [facility] 3 days in a row to transfer this pt to [facility] with no results, [facility] has not called me back. I have called [facility] today and await for LISA MELCHOR for [facility] to call me back.
[2019-02-10] MEDS: FUROSEMIDE 40 MG/4 ML VIAL IV SCH (10:38)
--- NOTE | 2019-02-10 10:45 | NUR ---
Patient's son Everett at bedside, updated on patient's status and POC. Patient and son Everett refusing MITCH at this time. Will inform Dr Nunez. All other questions and concerns addressed.
[2019-02-10] MEDS: CYANOCOBALAMIN 500 MCG TAB PO SCH (10:55)
[2019-02-10] MEDS: AMIODARONE HCL 200 MG TAB NG SCH ×2 (10:55→22:04)
[2019-02-10] MEDS: POTASSIUM CHL 20 Meq TABLET PO SCH (10:56)
[2019-02-10] MEDS: METOPROLOL TARTRATE 25 MG TAB PO SCH ×2 (10:56→22:04)
[2019-02-10] MEDS: PANTOPRAZOLE 40 MG TAB PO SCH (10:56)
[2019-02-10] MEDS: ACETAMINOPHEN 500 MG TAB PO PRN ×2 (10:57→22:05)
--- NOTE | 2019-02-10 10:57 | NUR ---
Patient complaining of generalized pain, Tylenol PRN given. Will continue to monitor.
--- NOTE | 2019-02-10 11:00 | NUR ---
Received call from O[facility] capone Tuckerman, updated on patient's status. All questions addressed.
[2019-02-10 11:50] VITALS: BP 109/59
--- NOTE | 2019-02-10 14:30 | NUR ---
Patient for possible transfer to [facility] today, wound photos taken for reference.
--- NOTE | 2019-02-10 15:35 | NUR ---
Received call from Dr Duran of [facility], updated on patient's status. All questions addressed.
--- NOTE | 2019-02-10 15:44 | NUR ---
Transfer: [facility] at [facility] called me back ( approx 1330 hrs) to let me know they are working on getting pt a bed at [facility].
[2019-02-10 15:50] VITALS: BP 102/58
[2019-02-10] MEDS ORDERED: WARFARIN SODIUM 1 MG TAB PO ONE (17:00)
[2019-02-10 20:00] VITALS: BP 101/65
--- NOTE | 2019-02-10 21:32 | NUR ---
[facility] TRANSFER INFO SPOKE WITH DARIANA AT THE TRANSFER CENTER [facility] ROOM 535 REPORT TO SUREKHA AT [phone] ACCEPTING MD Fiona WARD [facility] ETA [id number]
[2019-02-10] MEDS: ATORVASTATIN 20 MG TAB PO SCH (22:04)
--- NOTE | 2019-02-10 22:50 | NUR ---
REPORT GIVEN TO SUREKHA AT [facility]
--- NOTE | 2019-02-10 23:24 | NUR ---
[facility] AT BEDSIDE REPORT GIVEN TO [facility] PERSONNEL. PACKET GIVEN TO THEM. PATIENT TRANSFERRED TO [facility] AND CONNECTED TO MONITOR AND O2. ALL BELONGINGS TAKEN WITH PATIENT. DC WOUND PICS TAKEN BY ANDREW THOMAS IN DAY SHIFT.
== END 2019-02-10 23:26 | disposition short-term general hospital (02) | DRG 871 ==
LOC: EDBD 09:40 → ER 09:40 → TELE 09:41 → ICU CENTRL 16:45 → DOU IN ICU 17:00
PROVIDERS: ADMIT Internal Medicine; ATTEND Internal Medicine
PROC: 0RSJXZZ Reposition Right Shoulder Joint, External Approach (ICD-10-PCS; principal; 2019-02-06)
DX: A41.51 Sepsis due to Escherichia coli [E. coli] (principal); I21.4 Non-ST elevation (NSTEMI) myocardial infarction; G93.41 Metabolic encephalopathy; I50.43 Acute on chronic combined systolic (congestive) and diastolic (congestive) heart failure; J18.9 Pneumonia, unspecified organism; E44.0 Moderate protein-calorie malnutrition; I24.9 Acute ischemic heart disease, unspecified; N39.0 Urinary tract infection, site not specified; E66.01 Morbid (severe) obesity due to excess calories; Z86.73 Personal history of transient ischemic attack (TIA), and cerebral infarction without residual deficits; S43.004A Unspecified dislocation of right shoulder joint, initial encounter; I48.91 Unspecified atrial fibrillation; E78.5 Hyperlipidemia, unspecified; E11.21 Type 2 diabetes mellitus with diabetic nephropathy; D64.9 Anemia, unspecified; F17.200 Nicotine dependence, unspecified, uncomplicated; I49.5 Sick sinus syndrome; T45.515A Adverse effect of anticoagulants, initial encounter; R79.89 Other specified abnormal findings of blood chemistry; M19.90 Unspecified osteoarthritis, unspecified site; R56.9 Unspecified convulsions; X58.XXXA Exposure to other specified factors, initial encounter; E03.9 Hypothyroidism, unspecified; E11.649 Type 2 diabetes mellitus with hypoglycemia without coma; Z66 Do not resuscitate; Z68.36 Body mass index [BMI] 36.0-36.9, adult; Z79.01 Long term (current) use of anticoagulants; Z90.49 Acquired absence of other specified parts of digestive tract; Z88.5 Allergy status to narcotic agent; Z83.3 Family history of diabetes mellitus; Z95.0 Presence of cardiac pacemaker; Z90.710 Acquired absence of both cervix and uterus; Z79.899 Other long term (current) drug therapy; Y92.89 Other specified places as the place of occurrence of the external cause; Y93.89 Activity, other specified; Y99.8 Other external cause status
CPT/HCPCS: 23650; 36415; 70450; 71045; 73020; 73502; 73560; 80053; 80061; 80307; 81001; 82550; 82607; 82746; 82962; 83036; 83605; 83735; 83880; 84443; 84484; 85025; 85610; 85652; 85730; 86141; 87040; 87081; 87086; 87088; 87186; 87804; 92610; 93005; 93306; 93886; 93971; 94640; 95819; 96361; 96365; 96367; 96375; 97163; 99291; G0378; J0696; J1815; J2543; Q9956